=== PATIENT | male | born 1960 | race Caucasian/White ===

== ENCOUNTER 2017-12-09 07:12 | Inpatient (IN) | payer BC ==
--- NOTE | 2017-11-27 20:46 | HP ---
HISTORY AND PHYSICAL: DATE OF ADMISSION/SURGERY: 12/09/17 DATE OF HISTORY AND PHYSICAL: 11/26/17 ATTENDING PROVIDER: Dr. Sierra * (DICTATED BY SMITH MEYER) PROCEDURE: Total hip arthroplasty. CHIEF COMPLAINT: Right hip pain. HISTORY OF PRESENT ILLNESS: Tonny is a 56-year-old male who has been followed by Dr. Sierra for over a year with severe right hip arthritis that has responded in the past positively to cortisone injection. He is able to only walk one to two blocks without being stopped per pain. He is using a forearm cane in his left hand. He is having great difficulty with stairs. His gait is interrupted with regional pain in the right hip frequently. He has been using ibuprofen 600 mg b.i.d. as needed, other days he uses two Aleve and he has found that aspirin can work very well for him 600 mg every 4 to 6 hours. He only uses one of these on any given day. He has discussed a right hip arthroplasty with Dr. Sierra on his last appointment on 10/20/17. He follows up today for an H and P for the same. Patient denies any history of anesthesia problems or of DVT or PE. PAST MEDICAL HISTORY: Include osteoarthritis and anxiety. PAST SURGICAL HISTORY: Hernia repair, two left knee surgeries, one being an ACL reconstruction and a cyst removal of his eye. MEDICATIONS: 1. Ativan 0.5 mg p.r.n. 2. Motrin. 3. Aspirin. 4. Osteo Bi-Flex with Joint Shield. 5. E complex vitamins. 6. Aleve as well as oxycodone. ALLERGIES: No known drug allergies. No allergy to tape or adhesive. FAMILY MEDICAL HISTORY: Father with cardiac disease, colon cancer, and skin cancer. Mother with cancer of unknown origin. SOCIAL HISTORY: Patient is a current everyday smoker and plans to stop on 11/27. He drinks alcohol occasionally. He does endorse marijuana. REVIEW OF SYSTEMS: Positive for palpitations, reports occasional PVCs, a current cough due to a cold, his current complaint chronic back pain, anxiety, numbness and tingling in his left small finger. He does endorse that he barely walk up flight of stairs or a city block without shortness of breath though he is limited by pain. He denies any history of anesthesia problems and no history of DVT or PE. PHYSICAL EXAMINATION GENERAL: He is a well-nourished, well-developed 56-year-old man, in no acute distress. He is alert and oriented x3. He has no gross neurologic deficiencies. He ambulates with a forearm cane. He has normal mood and affect. VITAL SIGNS: Height 68 inches, weight 210 pounds, blood pressure 122/82, respirations 18, temperature 97.6. Pain level 5. BMI 31.9. HEENT: Normocephalic, atraumatic. Pupils equally round and reactive to light. Extraocular movements are intact. NECK: Supple. No palpable cervical lymph nodes. Thyroid is smooth and nontender. PULMONARY: Lungs clear to auscultation bilaterally with no wheezes, rales, or rhonchi. CARDIAC: Regular rate and rhythm. No murmurs, rubs, or gallops. No pedal edema. 2+ DP pulses bilaterally. ABDOMEN: Soft, nontender. MUSCULOSKELETAL: Right hip skin is intact with no erythema, no ecchymosis, and no swelling. He has painful flexion to 80 degrees, abduction to 30 degrees. External rotation to 20 degrees. Actively, passively he can go to 30 to 40 degrees. There is no internal rotation of his hips. Straight leg raise is possible on the right side though it is just a couple of inches and very painful. Right hip is nontender anteriorly, laterally, and posteriorly. No masses are appreciated. No swelling of the right leg, ankle, or feet. Right knee extension is 0 degrees, left knee extension is 0 degrees. STUDIES: X-rays done on 10/20/17 show right hip arthritis that is severe and progressed somewhat since previous views. He has some flattening of the femoral head. IMPRESSION: Severe osteoarthritis of the right hip. PLAN: Tonny is scheduled to undergo a right total hip arthroplasty with Dr. Sierra on 12/09/2017. He will return to clinic in 5-6 weeks postop for followup. He will have suture removal by home health. He has a prescription for oxycodone currently for pain control, which may need to be re-sent on the day of surgery. He will use aspirin for DVT prophylaxis as well as movement. SMITH MEYER [id number]/[facility] #: [id number] MTDEdu
[~2017-12-09 07:12] MED LIST: Buffered Lidocaine 0.9% SYRIN* 5 ML/SYR SYRINGE INTRADERM ONE; DiMENhydriNATE IV* 50 MG/ML VIAL IV PUSH PRN; Famotidine IV* 10 MG/ML 2 ML (20 mg) IV ONE; Morphine INJ* 2 MG/ML 1 ML CARPUJECT IV PRN; Naloxone* 0.4 MG/ML 1 ML VIAL IV PRN; PROCHLORPERAZINE INJ 5 MG/ML 2 ML VIAL IV PRN; Scopolamine 1.5 mg* PATCH TRANSDERM PRN; fentaNYL* 50 MCG/ML 2 ML VIAL (100 MCG VIAL) IV PRN; oxyCODONE/Acetamin 5/325 MG* TAB PO PRN
--- OUTSIDE RECORDS SUMMARY | 2017-12-09 07:19 | XMS REPORT ---
:1960 External Reference #:[id number] Author Organization [facility] Address [address] [address] Phone [phone] Care Team Providers Name Role Phone Lex Joiner MD Primary Care Physician Unavailable Payers Type Date Identification Numbers Payment Provider Subscriber Commercial Effective: Policy Number: CHRIS Cristobal Bansal 2014 [id number] PayID: [id number] [address] [address] [place] [address] Medigap Part B Expires: 2014 Policy Number: Arian Khan jordan Tonny Bansal [id number] PayID: [id number] [address] [address] [place] [address] Problems Description No Information Family History Date Family Member(s) Problem(s) Comments Father Colon Cancer father Mother Liver Cancer liver Social History Type Date Description Comments Lives With Adult family home Occupation RN ETOH Use Drinks Alcoholic Beverages Occasionally ETOH Use He 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 Smoking Patient is a former smoker quit in 2000 Smoking He says he is smoking again. Exercise Type/Frequency Does not exercise Allergies, Adverse Reactions, Alerts Date Description Reaction Status Severity Comments 07/20/2014 NKDA active Medications Medication Date Status Form Strength Qnty SIG Indications Ordering Provider Oxycodone HCL Active Tablets 5mg 60tabs 1 tabs by M16.11 Dirk Rigo, 017 mouth M.D. every 8 hours as needed Lorazepam Active Tablets 0.5mg 60tabs 1 by mouth M16.11 Dirk Rigo, 017 each M.D. evening if needed for sleep Motrin Active Unknown 000 Aspirin Active Tablets 325mg take 2 Unknown 000 tabs daily Osteo Bi-Flex Active Tablets Unknown Advanced 000 Double Strength With Joint Shield B Complex Active Capsules 1 by mouth Unknown Vitamins 000 every day Aleve Active Tablets 220mg as needed Unknown 000 Percocet Hx Tablets 5-325mg 60tabs 1 by mouth M16.11 Kiran Sierra 017 - every 8 M.D. hours as 017 needed pain Oxycodone-Joshua Hx Tablets 5-325mg 40tabs 1-2 tab by Kiran Sierra taminophen 014 - mouth q4-6 M.D. hours as 017 needed pain Oxycodone HCL Hx Capsules 5mg 60caps 1-2 tab po Kiran Sierra, 012 - q4-6h prn M.D. pain 014 Ambien Hx Unknown 000 - 017 Medications Administered in Office Medication Date Status Form Strength Qnty SIG Indications Ordering Provider Depomedrol Administered Injection Josh Vo 80MG 012 Lynsey Leo Depomedrol Administered Injection Kiran Sierra, 40MG 009 M.D. Vital Signs Date Vital Result Comment 11/26/2017 Height 68 inches 5'8" Weight 210.00 lb BP Systolic 122 mmHg BP Diastolic 82 mmHg Respiratory Rate 18 /min Body Temperature 97.6 F Pain Level 5 BMI (Body Mass Index) 31.9 kg/m2 10/20/2017 Height 68 inches 5'8" Weight 210.00 lb BP Systolic 124 mmHg BP Diastolic 84 mmHg Respiratory Rate 20 /min Body Temperature 97.1 F Pain Level 8 BMI (Body Mass Index) 31.9 kg/m2 09/02/2017 Heart Rate 80 /min BP Systolic 142 mmHg BP Diastolic 82 mmHg Respiratory Rate 18 /min Body Temperature 97.7 F 04/14/2017 Height 68 inches 5'8" Weight 210.00 lb Heart Rate 119 /min BP Systolic 157 mmHg BP Diastolic 109 mmHg Body Temperature 96.7 F BMI (Body Mass Index) 31.9 kg/m2 07/20/2014 Height 67 inches 5'7" Weight 200.00 lb Heart Rate 112 /min BP Systolic 135 mmHg BP Diastolic 100 mmHg BMI (Body Mass Index) 31.3 kg/m2 Results Description No Information Procedures Date CPT Code Description Status 07/20/2014 77663 Rad Exam; Hip Unilat Completed 07/20/2014 75755 Rad Exam; Pelvis Completed 03/09/201261663 Inject/Drain Joint/Bursa Major Completed 11/22/2009 05068 Rad Exam; Both Knees, Standing Ap Completed 11/22/200922134 Inject/Drain Joint/Bursa Major Completed Encounters Type Date Location Provider CPT E/M Dx Office Visit 10/20/2017 [facility] Sierra M.D. 06272 M16.11 10:15a [facility] Office Visit 09/02/2017 [facility] [place] [address] K42.9 9:00a Pediatric Immunologist K40.90 Office Visit 04/14/2017 9:45a [facility] M.D. 06492 M16.11 [facility] Office Visit 07/20/2014 4:00p [facility] M.D. 95099 715.95 [facility] Office Visit 03/09/2012 2:00p [facility] [place] [address] 715.96 Of [facility]ALynsey Farley 716.96 Office Visit 11/22/2009 3:30p [facility] M.D. 73600 716.96 [facility] 719.46 Plan of Care Future Appointment(s):12/09/2017 7:30 am - MARILYNN Mathis at [facility]12/09/2017 7:30 am - Kiran Sierra M.D. at [facility]11/26/2017 - Kiran Sierra M.D.M16.11 Unilateral primary osteoarthritis, right hipFollow up:Follow up: 3-5 weeks or as needed for recheck
[2017-12-09] MEDS ORDERED: Buffered Lidocaine 0.9% SYRIN* 5 ML/SYR SYRINGE ONE (07:23)
[2017-12-09] MEDS ORDERED: Famotidine IV* 10 MG/ML 2 ML (20 mg) ONE (07:23)
[2017-12-09] MEDS ORDERED: ceFAZolin 2 GM PREMIX (*) 2 GM/50 ML BAG IVPB ONE (07:23)
[2017-12-09] MEDS ORDERED: Morphine PF AMP (0.5MG/ML)* 5 MG/10 ML AMP ONE (08:04)
[2017-12-09] MEDS ORDERED: KETAMINE HCL* 50 MG/ML 10 ML VIAL ONE (08:04)
[2017-12-09] MEDS ORDERED: Midazolam* 1 MG/ML 10 ML VIAL (10 MG) ONE (08:04)
[2017-12-09] MEDS ORDERED: fentaNYL* 50 MCG/ML 2 ML VIAL (100 MCG VIAL) ONE ×2 (08:04→09:24)
[2017-12-09] MEDS ORDERED: DiMENhydriNATE IV* 50 MG/ML VIAL IV PUSH PRN (09:06)
[2017-12-09] MEDS ORDERED: oxyCODONE/Acetamin 5/325 MG* TAB PO PRN (09:06)
[2017-12-09] MEDS ORDERED: Naloxone* 0.4 MG/ML 1 ML VIAL IV PRN (09:06)
[2017-12-09] MEDS ORDERED: diPHENhydraMINE IV* 50 MG/ML 1 ml VIAL (BENADRYL) IV PRN (09:06)
[2017-12-09] MEDS ORDERED: Naloxone* 2 MG in NS 0.9% 250 ML* 250 ML IV PRN (09:06)
[2017-12-09] MEDS ORDERED: Nalbuphine* 20 MG/ML 1 ML VIAL IV PRN (09:06)
[2017-12-09] MEDS ORDERED: PROCHLORPERAZINE INJ 5 MG/ML 2 ML VIAL IV PRN (09:06)
[2017-12-09] MEDS ORDERED: Midazolam* 1 MG/ML 2 ML VIAL (2 MG) ONE (09:24)
[2017-12-09] MEDS ORDERED: Propofol* 10 MG/ML 20 ML BTL IV PUSH ONE (11:02)
[2017-12-09] MEDS ORDERED: Phenylephrine INJ* 10 MG/ML 1 ML VIAL (10 MG) ONE (11:02)
[2017-12-09] MEDS ORDERED: Dexamethasone IV* 4 MG/ML 1 ML (4 MG) ONE (11:02)
[2017-12-09] MEDS ORDERED: Lidocaine 2% PF * 5 ML VIAL ONE (11:02)
[2017-12-09] MEDS ORDERED: Ondansetron INJ* 2 MG/ML VIAL ONE (11:02)
[2017-12-09] MEDS ORDERED: Bupivacaine 0.5% SDV PF* 10-30ML VIAL ONE (11:02)
[2017-12-09] MEDS ORDERED: Cyclobenzaprine TAB* 10 MG PO PRN (11:27)
[2017-12-09] MEDS ORDERED: Ondansetron INJ* 2 MG/ML VIAL IV PRN (11:27)
[2017-12-09] MEDS ORDERED: Magnesium Hydroxide LIQ* 30 ML UDC PO PRN (11:27)
--- NOTE | 2017-12-09 12:32 | RAD ---
HISTORY: Status post right hip arthroplasty COMPARISONS: October 20, 2017 VIEWS: 2, frontal views of the pelvis FINDINGS: BONE DENSITY: Normal. BONES: The patient is status post right hip arthroplasty. On this single frontal projection, there is no appreciable hardware failure or osteolysis. JOINTS: Status post right hip arthroplasty. ALIGNMENT: There is no dislocation. SOFT TISSUES: Unremarkable. OTHER FINDINGS: None. IMPRESSION: STATUS POST RIGHT HIP ARTHROPLASTY
[2017-12-09] MEDS: ceFAZolin 1 GM VIAL(*) 1 GM in NS 0.9% 50 ML* 50 ML IVPB SCH ×2 (15:40→23:57)
[2017-12-09] MEDS: Magnesium Hydroxide LIQ* 30 ML UDC PO SCH (21:26)
[2017-12-09] MEDS: Docusate CAP* 100 MG PO SCH (21:26)
[2017-12-09] MEDS: Ketorolac INJ* 30 MG/ML 1 ML VIAL IV PRN (23:55)
[2017-12-10] MEDS: oxyCODONE TAB* 5 MG TAB PO PRN ×4 (00:11→12:08)
[2017-12-10] MEDS ORDERED: oxyCODONE TAB* 5 MG TAB PO PRN (00:30)
[2017-12-10] MEDS ORDERED: diPHENhydraMINE IV* 50 MG/ML 1 ml VIAL (BENADRYL) IV PRN (00:30)
[2017-12-10] MEDS ORDERED: oxyCODONE/Acetamin 5/325 MG* TAB PO PRN ×2 (00:30)
--- NOTE | 2017-12-10 02:05 | OP ---
DATE OF OPERATION: 12/09/17 - ROOM #342 DATE OF : 58 SURGICAL CARE: Right hip. SURGEON: Kiran Sierra MD ASSISTANTS: 1. SMITH Mathis 2. Cathy Holman, assembler surgical garment. ANESTHESIOLOGIST: Dr. Rosendo Zaragoza. ANESTHESIA: Spinal with Duramorph and IV sedation. PRE-OP DIAGNOSIS: Severe arthritis of the right hip. POST-OP DIAGNOSIS: Severe arthritis of the right hip. OPERATIVE PROCEDURE: Right total hip replacement. COMPONENTS UTILIZED: The [place]es MDM dual mobility type hip was utilized. COMPLICATIONS: There were no complications. DRAINS: There were no drains. BLOOD LOSS: 300 mL. REPLACEMENT: Crystalloid fluids. CONDITION: Stable to recovery room. OPERATIVE INDICATIONS: Severe arthritis of the right hip. It has been no longer responsive to nonoperative care. The patient did have a cortisone injection in 2017 that was somewhat helpful for a few months and then pain and disability returned. DESCRIPTION OF PROCEDURE: The patient was brought to the operating room and placed on the operating room in a supine position following the administration of the anesthetic. He was returned to the supine position from the seated position. A Chacon catheter was inserted. The patient was placed in the left lateral position with a folded blanket under the left greater trochanter to elevate the pelvis somewhat towards the sealing. The pelvis was secured over the ASISs and the sacrum with hip positioner. Blankets were placed between the legs to downside. Leg was checked to see if there was no pressure on the peroneal nerve at the fibular head and neck. Axillary roll was inserted. The groin was sealed off and the right hip was given a preliminary chlorhexidine prep and then the right hip was prepped above the iliac crest to the foot and then draped free and carefully sealed off in the usual fashion for arthroplasty of the hip. After prepping and draping and sealing off, we did our universal protocol time-out confirming Tonny Bansal and a plan for a right total hip replacement. We all agreed and we proceeded. The hip was approached with a curving posterolateral skin incision going from the greater trochanter distally for a 1-1/2 inch and curving proximally and posteriorly for 3-1/2 inches. The skin and subcutaneous tissues were divided down to the fascia torrie. Careful hemostasis was checked and achieved throughout the case utilizing electrocautery. The fascia torrie was opened in line with the skin incision. A Charnley retractor was inserted and then a careful posterior approach to the hip was done. The gluteus medius was retracted anteriorly with a blunt Hohmann retractor exposing the piriformis and conjoined tendon. The piriformis and conjoined tendon were each marked with a # 2 Surgidac suture and this stitch also included the underlying posterior inferior capsular flap and this served as a retractor throughout the case. The patient had a lot of gold clear synovial fluid. There were osteophytes on the femoral neck. After the careful posterior approach of the hip with careful hemostasis, the hip was dislocated without difficulty. The femoral neck was cut less than a fingerbreadth proximal to the lesser trochanter. The head was completely eburnated and had lost its round shape and was flattened on the top where there was no cartilage and then osteophytes around the base of the head. The acetabulum had lot of synovitis. The acetabulum had large osteophyte medially and posteriorly inferiorly and anteriorly inferiorly. These were all removed in the course of the surgical care. On the acetabulum, sharp Hohmann were placed anteriorly and posteriorly, blunt Hohmann superiorly and inferiorly , more synovectomy was completed as we exposed the acetabulum. The labrum was removed posteriorly, superiorly and anteriorly. Once the exposure was complete , then the reaming was done 44 through 51 and at 51, we did a trial reduction with a nice tight fit of 52. Hemispheric acetabular shell Trident type E type 52 mm outer diameter was then impacted into position and 45 degrees of abduction and 20 degrees of anteversion with a nice tight fit. The acetabulum was cleaned several times with pulsed saline prior to insertion and then one screw was placed superiorly. The MDM type liner inner diameter 42 mm for the 52 cup was inserted with nice tight fit. Attention was then turned to the femoral side and on the acetabulum, we removed the large osteophytes anteriorly and posteriorly and across the bottom as indicated. Each one was 3 cm in length, 5.5 cm in height and 1 cm in thickness. The acetabulum was packed with a saline soaked lab sponge and on the femoral side, we used the canal finder and the box osteotome. Broaching was done, size 0, 1, 2, and 2.5 and at 2.5, we had a nice tight fit. I did not think it was safe to go to a 3. A trial reduction was done with the 2.5 broach and the +0 head and neck and this had positive shock test in extension and a positive push pull. The final femoral stem was then inserted. The Accolade TMZF stem 132 degree neck angle with 30 mm neck was inserted into position in 15 to 20 degrees of anteversion with nice tight fit. Another trial reduction was then done with the +4 head and this had good stability and extension, a negative shock test in extension. No tendency towards dislocation with IR, ER in extension and flexion of 90 degrees allowed adduction and internal rotation of 30 to 40 degrees prior to dislocation. The final components were then opened up. The ceramic head outer diameter 28 mm +4 mm neck length was impacted into the denominational poly insert, the 42E with an inner diameter of 28. These were popped together and had a nice smooth motion between the head and the poly. The trunnion was then cleaned on the prosthesis and dried and the poly ceramic head construct was impacted on to the femoral neck with nice tight fit. The hip was reduced without difficulty and closure was started. During closure, we irrigated several times with saline irrigation solution. The piriformis and conjoint tendon were reapproximated to the posterosuperior greater trochanter with 2 drill holes. Careful hemostasis checked and achieved. I did not think the drains were necessary. The fascia torrie was closed with interrupted #1 [id number] Ti-Cron and the fascia of the gluteus mireya closed with 0 Ti- Cron. The deep and superficial subcu closed with 0 and then 2-0 Ti-Cron inverted on the superficial subcu. The skin was closed with oliva. The wound was washed and dried and covered with Betadine soaked release followed by sterile gauze, ABD pads, and then paper tape. The patient was returned to the supine position and into the hospital bed and to the recovery room in stable and satisfactory condition, having tolerated the procedure very well. [id number]/[facility] #: [id number] DOUG
[2017-12-10] MEDS: Ketorolac INJ* 30 MG/ML 1 ML VIAL IV PRN ×2 (06:09→12:09)
[2017-12-10 06:24] LABS: Hematocrit 38 % (42-52); Hemoglobin 12.8 g/dl (14.0-18.0); Mean Platelet Volume 9 um3 (7.4-10.4); Platelet Count 118 10^3/ul (150-450)
[2017-12-10 06:37] LABS: EGFR Non-African American 126.6 (>60)
[2017-12-10] MEDS: Magnesium Hydroxide LIQ* 30 ML UDC PO SCH (08:07)
[2017-12-10] MEDS: ceFAZolin 1 GM VIAL(*) 1 GM in NS 0.9% 50 ML* 50 ML IVPB SCH (08:07)
[2017-12-10] MEDS: Docusate CAP* 100 MG PO SCH (08:09)
[2017-12-10] MEDS ORDERED: Zolpidem TAB* 10 MG PO PRN (08:13)
--- NOTE | 2017-12-10 08:19 | PN ---
Progress Note - Progress Note Date of Service: 12/10/17 Note: 99 F , VSStable. Hct 38% I and O is satisfactory. X-ray right hip after surgery was satisfactory. Awake, alert, NAD and right hip is dry. Able to raise right leg and do heel slide. Right ankle AROMs up and down. Imp: Stable. Plans: Mobilize with therapy.
[2017-12-10] MEDS ORDERED: Vitamin B Complex TAB PO SCH (09:00)
[2017-12-10] MEDS ORDERED: Aspirin TAB* 325 MG PO SCH (09:00)
[2017-12-10 10:49] VITALS: BP 116/80
[2017-12-10] MEDS ORDERED: Morphine INJ* 2 MG/ML 1 ML SYRINGE (TWO MG - NEW SYRINGE VERSION) IV PRN (12:00)
--- NOTE | 2017-12-11 01:00 | DS ---
DISCHARGE SUMMARY: DATE OF ADMISSION: 12/09/17 DATE OF DISCHARGE: 12/10/17 PROVIDER AND SURGEON: Kiran Sierra MD * (DICTATED BY SMITH CAIN) ASSISTANTS: SMITH Mathis and Cathy Holman land survey technician. PRE-OP DIAGNOSIS: Severe arthritis of the right hip. OPERATIVE PROCEDURE: Right total hip replacement. OPERATIVE INDICATIONS: Severe arthritis of the right hip. It has been no longer responsive to nonoperative care. The patient did have a cortisone injection in 2017 that was somewhat helpful for a few months and then pain and disability returned. HOSPITAL COURSE: Tonny Bansal was admitted to [facility] on . He underwent a right total hip arthroplasty by Dr. Kiran Sierra without complications. He recovered briefly in the PACU and then was transferred to the short-stay surgical unit in stable condition. On postop day #1, Vital Signs: Temperature 98.5, pulse 72, respiratory rate 16 , oxygen saturation 100, blood pressure 116/80. The patient was awake, alert and in no acute distress. Right lower extremity incision looks clean, dry and intact. Dressing was changed and redressed. The patient is able to do a right leg raise and do a heel slide. Right ankle dorsi-flexion and plantar flexion is intact. 2+ dorsalis pedis pulse. Sensation is intact distally. The patient worked with physical therapy and did well. He desired for discharge home today. DISCHARGE MEDICATIONS: 1. Aspirin 325 mg p.o. daily. 2. Glucosamine sulfate 100 mg p.o. daily. 3. B complex vitamin 1 p.o. daily. 4. Oxycodone 5 mg tab, the patient may take 1 to 2 tabs p.o. every 4 hours as needed, not to exceed 60 mg per day. 5. Docusate 100 mg p.o. b.i.d. as needed for bowel movement. DISCHARGE PLAN: Weightbearing as tolerated. Continue hip precautions, do not bend greater than 90 degrees, do not squat, do not cross her legs. Wound care, okay to shower after 12/12/17. No bathing, swimming, or submerging wound. Call orthopedic office for increased drainage, redness, increased pain or fever. Go to the ER with shortness of breath or chest pain. Regular diet. Please call the office if no bowel motion within 48 hours. Continue to use stool softener to ease constipation. Physical therapy and occupational therapy exercises as shown. Visiting nurse will remove oliva in 10 to 12 days and do wound checks. Aspirin 325 mg p.o. daily for DVT prophylaxis to prevent blood clots. Pain control, oxycodone 5 mg tabs, he may take 1 to 2 tabs as often as every 4 hours as needed for pain, not to exceed a maximum daily dose of 60 mg. If you are also taking Tylenol for pain, please note that the maximum daily dose of Tylenol is 4000 mg from all sources. Please follow up with Dr. Sierra in 4 to 6 weeks. Call for an appointment if you do not already have one. SMITH CAIN [id number]/[facility] #: [id number] MTDEdu
[2017-12-12] MEDS ORDERED: Scopolamine PATCH Remove* 1 NOTE MISC PATCH OFF ONE (06:32)
== END 2017-12-10 12:45 | disposition home or self-care (01) | DRG 301 ==
LOC: AA 07:12 → SSU 13:20
PROVIDERS: ADMIT Orthopaedic Surgery; ATTEND Orthopaedic Surgery
PROC: 0SR903A Replacement of Right Hip Joint with Ceramic Synthetic Substitute, Uncemented, Open Approach (ICD-10-PCS; principal; 2017-12-09 08:30)
DX: M16.11 Unilateral primary osteoarthritis, right hip (principal); F12.90 Cannabis use, unspecified, uncomplicated; M25.751 Osteophyte, right hip; F41.9 Anxiety disorder, unspecified; F17.200 Nicotine dependence, unspecified, uncomplicated; G89.29 Other chronic pain; M54.9 Dorsalgia, unspecified; Z79.82 Long term (current) use of aspirin; Z82.49 Family history of ischemic heart disease and other diseases of the circulatory system; Z80.0 Family history of malignant neoplasm of digestive organs; Z72.89 Other problems related to lifestyle
CPT/HCPCS: 36415; 72170; 80048; 85014; 85018; 85049; A9270-GY; C1713; C1776; J0690; J1100; J1885; J2250; J2405; J2704; J3010

== ENCOUNTER 2018-06-16 08:13 | Emergency (ER) | payer BC, OTHER ==
[2018-06-16 09:09] LABS: ABS Basophils 0 10^3/ul (0-0.2); ABS Eosinophils 0.1 10^3/ul (0-0.6); ABS Lymphocytes 0.9 10^3/ul (1.0-4.8); ABS Monocytes 0.3 10^3/ul (0-0.8); ABS Neutrophils 4.9 10^3/ul (1.5-7.7); ABS Nucleated RBC 0 10^3/ul; Eosinophil % 0.9 % (0-6); Hematocrit 49 % (42-52); Hemoglobin 16.9 g/dl (14.0-18.0); Lymphocyte % 13.7 % (25-47); Mean Corpuscular HGB Conc 35 g/dl (31-36); Mean Corpuscular Hemoglobin 33 pg (27-31); Mean Corpuscular Volume 94 fL (80-94); Nucleated Red Blood Cells % 0.1; Platelet Count 111 10^3/ul (150-450); Red Cell Distribution Width 14 % (10.5-15); White Blood Count 6.2 10^3/ul (3.5-10.8)
[2018-06-16 09:41] LABS: EGFR Non-African American 103.8 (>60)
[2018-06-16] MEDS ORDERED: Iohexol 300* (CONTRAST) 10 ML SDV IV ONE (10:47)
--- NOTE | 2018-06-16 11:34 | RAD ---
INDICATION: Groin pain, hernia. COMPARISON: There are no prior studies available for comparison. TECHNIQUE: A CT scan of the abdomen and pelvis was performed with intravenous and with oral contrast following intravenous injection of 127 ml of Omnipaque 300 nonionic contrast. Contiguous axial sections were obtained from the lung bases through the symphysis pubis. Images were reconstructed in the coronal and sagittal planes. FINDINGS: There is mild dependent bilateral lower lobe subsegmental atelectasis. No pleural effusion is present. The liver and spleen are normal in size. The liver is decreased in attenuation consistent with fatty infiltration. No significant focal abnormality is seen. No calcified gallstones are noted. The pancreas appears to be within normal limits. The kidneys and adrenal glands are normal in size. No hydronephrosis is seen. There is a 1.9 cm cyst in the midportion of the left kidney. There is a fusiform shaped aneurysm of the midabdominal the aorta beginning just below the level of the renal tony measuring up to 4.7 cm in transverse dimension. No significant enlarged retroperitoneal lymph nodes are seen. The stomach, small and large bowel appear nondistended. The appendix is within normal limits. There is moderate descending and sigmoid diverticulosis without evidence for diverticulitis. In addition, there is a right inguinal hernia containing nondistended sigmoid colon. There is also a periumbilical hernia containing fat. No free intraperitoneal air or fluid is seen. The patient is status post total right hip replacement surgery. There is degenerative disc disease present in the lumbar spine which is most prominent at the L2-L3 level. No significant focal osseous abnormality is noted. IMPRESSION: 1. 4.7 CM FUSIFORM SHAPED ABDOMINAL AORTIC ANEURYSM. 2. RIGHT INGUINAL HERNIA CONTAINING NONDISTENDED SIGMOID COLON. 3. PERIUMBILICAL HERNIA CONTAINING FAT. 4. HEPATIC STEATOSIS.
--- NOTE | 2018-06-16 12:56 | ED ---
Abdominal Pain/Male - HPI Summary HPI Summary: Patient is a 57-year-old male who presents emergency department for abdominal pain. Patient states he has 2 known abdominal hernias and states that the pain to his right groin has been getting worse and more persistent over the last several days. He states he has an appointment with his surgeon next week but could not wait secondary to pain. Patient denies fever, chills, vomiting, diarrhea, constipation. Pain is worse with coughing and movement. Nothing makes symptoms better. Symptoms are moderate in severity. - History of Current Complaint Chief Complaint: EDAbdPain Stated Complaint: POSSIBLE HERNIA Time Seen by Provider: 06/16/18 08:20 Hx Obtained From: Patient Pain Intensity: 6 - Allergies/Home Medications Allergies/Adverse Reactions: Allergies Allergy/AdvReac Type Severity Reaction Status Date / Time No Known Allergies Allergy Verified 12/09/17 07:29 Home Medications: Home Medications Aspirin TAB* [Aspirin 325 MG TAB*] 650 mg PO Q6H PRN 06/16/18 [History Confirmed 06/16/18] Ondansetron TAB* [Zofran 4 MG Tab*] 4 mg PO Q6H PRN 06/16/18 [History Confirmed 06/16/18] Vitamin B Complex CAP* [B Complex CAP*] 1 cap PO DAILY 06/16/18 [History Confirmed 06/16/18] PMH/Surg Hx/FS Hx/Imm Hx Previously Healthy: Yes Endocrine/Hematology History: Reports: Hx Anemia - low platlets Cardiovascular History: Reports: Hx Peripheral Vascular Disease - poor circulation to legs tyler GI History: Reports: Hx Cirrhosis - etoh related Denies: Other GI Disorders Musculoskeletal History: Reports: Hx Arthritis - knees, back, neck, Hx Bursitis - shoulders tyler, Hx Tendonitis - tyler elbows Denies: Other Musculoskeletal History Sensory History: Reports: Hx Contacts or Glasses Denies: Hx Hearing Aid Opthamlomology History: Reports: Hx Contacts or Glasses Neurological History: Denies: Other Neuro Impairments/Disorders Psychiatric History: Reports: Hx Anxiety - at times Denies: Other Psychiatric Issues/Disorders - Surgical History Surgery Procedure, Year, and Place: ventral hernia age 6, [place] knee 1973, and 1977, [facility] Hx Anesthesia Reactions: No Infectious Disease History: No Infectious Disease History: Denies: Traveled Outside the [place] in Last 30 Days - Social History Occupation: Employed Full-time Lives: With Family Alcohol Use: Weekly Alcohol Amount: 2-3x week, pt states he is alcoholic, pint of liquor at a time. Substance Use Type: Reports: Marijuana Substance Use Comment - Amount & Last Used: rare Smoking Status (MU): Light Every Day Tobacco Smoker Type: Cigarettes Amount Used/How Often: 1 pack aday x 20 years, trying to quit Have You Smoked in the Last Year: No Review of Systems Constitutional: Negative Negative: Fever, Chills Cardiovascular: Negative Respiratory: Negative Positive: Abdominal Pain. Negative: Vomiting, Diarrhea, Nausea Genitourinary: Negative Neurological: Negative All Other Systems Reviewed And Are Negative: Yes Physical Exam Triage Information Reviewed: Yes Vital Signs On Initial Exam: Initial Vitals Temp Pulse Resp BP Pulse Ox 98.2 F 80 16 146/84 99 06/16/18 08:16 06/16/18 08:16 06/16/18 08:16 06/16/18 08:16 06/16/18 08:16 Vital Signs Reviewed: Yes Appearance: Positive: Well-Appearing - Pt. lying in bed in NAD. Skin: Positive: Warm, Dry Head/Face: Positive: Normal Head/Face Inspection Eyes: Positive: Normal Neck: Positive: Supple Respiratory/Lung Sounds: Positive: Breath Sounds Present Cardiovascular: Positive: Normal, RRR Abdomen Description: Positive: Other: - Obese. Abd. is soft. Bulging umbilical hernia that is soft and reducible. Tender right inguinal hernia noted protruding into scrotal sack. Neurological: Positive: Normal, CN Intact II-III Psychiatric: Positive: Affect/Mood Appropriate Diagnostics - Vital Signs Vital Signs Temp Pulse Resp BP Pulse Ox 06/16/18 10:50 155/88 06/16/18 10:20 159/96 06/16/18 09:50 148/87 06/16/18 09:20 148/90 06/16/18 08:37 81 99 06/16/18 08:35 76 163/102 98 06/16/18 08:16 98.2 F 80 16 146/84 99 - Laboratory Lab Results: Lab Results 06/16/18 06/16/18 Range/Units 08:57 08:57 WBC 6.2 (3.5-10.8) 10^3/ul RBC 5.20 (4.00-5.40) 10^6/ul Hgb 16.9 (14.0-18.0) g/dl Hct 49 (42-52) % MCV 94 (80-94) fL MCH 33 H (27-31) pg MCHC 35 (31-36) g/dl RDW 14 (10.5-15) % Plt Count 111 L (150-450) 10^3/ul MPV 9.0 (7.4-10.4) um3 Neut % (Auto) 79.6 (38-83) % Lymph % (Auto) 13.7 L (25-47) % [place] % (Auto) 5.4 (0-7) % Eos % (Auto) 0.9 (0-6) % Baso % (Auto) 0.4 (0-2) % Absolute Neuts (auto) 4.9 (1.5-7.7) 10^3/ul Absolute Lymphs (auto) 0.9 L (1.0-4.8) 10^3/ul Absolute Monos (auto) 0.3 (0-0.8) 10^3/ul Absolute Eos (auto) 0.1 (0-0.6) 10^3/ul Absolute Basos (auto) 0 (0-0.2) 10^3/ul Absolute Nucleated RBC 0 10^3/ul Nucleated RBC % 0.1 Sodium 139 (135-145) mmol/L Potassium 3.6 (3.5-5.0) mmol/L Chloride 101 (101-111) mmol/L Carbon Dioxide 26 (22-32) mmol/L Anion Gap 12 H (2-11) mmol/L BUN 10 (6-24) mg/dL Creatinine 0.77 (0.67-1.17) mg/dL Est GFR ( Amer) 125.6 (>60) Est GFR (Non-Af Amer) 103.8 (>60) BUN/Creatinine Ratio 13.0 (8-20) Glucose 133 H (70-100) mg/dL Calcium 9.2 (8.6-10.3) mg/dL Total Bilirubin 1.20 H (0.2-1.0) mg/dL AST 31 (13-39) U/L ALT 21 (7-52) U/L Alkaline Phosphatase 81 (34-104) U/L Total Protein 7.1 (6.4-8.9) g/dL Albumin 4.6 (3.2-5.2) g/dL Globulin 2.5 (2-4) g/dL Albumin/Globulin Ratio 1.8 (1-3) Result Diagrams: 06/16/18 08:57 06/16/18 08:57 Lab Statement: Any lab studies that have been ordered have been reviewed, and results considered in the medical decision making process. Abdominal Pain Fem Course/Dx - Course Course Of Treatment: Pt. presenting for increased pain to inguinal hernia. He is afebrile and nontoxic. CT scan per radiology: IMPRESSION: 1. 4.7 CM FUSIFORM SHAPED ABDOMINAL AORTIC ANEURYSM. 2. RIGHT INGUINAL HERNIA CONTAINING NONDISTENDED SIGMOID COLON. 3. PERIUMBILICAL HERNIA CONTAINING FAT. 4. HEPATIC STEATOSIS. Labs unremarkable. I was unable to reduce hernia. Surgery was consulted, Dr. Young, who presented to the ER and was able to reduce inguinal hernia. Will dc pt. home to [facility] with his surgeon. To avoid heavy lifting. To return to ER if symptoms change or worsen. - Diagnoses Provider Diagnoses: Inguinal hernia Discharge - Sign-Out/Discharge Documenting (check all that apply): Patient Departure - Discharge Plan Condition: Good Disposition: HOME Patient Education Materials: Inguinal Hernia (ED) Referrals: Lex Joiner MD [Primary Care Provider] - Additional Instructions: Follow up with your surgeon next week as scheduled Avoid heavy lifting Return to ER for increased pain or if concerned - Billing Disposition and Condition Condition: GOOD Disposition: Home
[2018-06-16 13:26] VITALS: BP 141/84
--- NOTE | 2018-06-16 19:09 | CONS ---
CC: Lex Joiner MD * CONSULTATION REPORT: DATE OF CONSULT: 06/16/18 REASON FOR CONSULT: Right inguinal hernia. HISTORY OF PRESENT ILLNESS: This is a 57-year-old gentleman with a 5-year history of right inguinal hernia, for which he had previously been seen at [facility] by Dr. Leblanc. The patient had deferred repair, which had been recommended at that time. He completed a hip arthroplasty on the right side in November of this year. Over the past 10 days, the patient has noted some increasing discomfort in the right groin and has found the hernia to be only partially reducible. The hernia is extending into the scrotum. He has been experiencing no nausea or vomiting. He denies constipation or inability to pass flatus. The patient reports he has no fevers or chills. The patient also notes he has an umbilical hernia. He had scheduled a followup appointment with Dr. Leblanc in the office for next week to address both issues. PAST MEDICAL HISTORY: Significant for peripheral vascular disease, alcohol- related cirrhosis, arthritis, anxiety. PAST SURGICAL HISTORY: Knee arthroscopies in 1973 and 1977 on the left, right total hip arthroplasty in November 2017. MEDICATIONS: Aspirin. ALLERGIES: None. SOCIAL HISTORY: He drinks a pint of liquor 2 to 3 times a week. He is a daily smoker and he is employed. PHYSICAL EXAM: He is in no acute distress, lying in the emergency room stretcher. His temperature was 98.2, pulse was 80, respirations 16, blood pressure is 159/96, and his O2 sat was 99% on room air. The abdomen was obese. He has a reducible umbilical hernia and inguinoscrotal right inguinal hernia that was also reducible. No hernia palpated on the left. DIAGNOSTIC STUDIES/LAB DATA: His CBC showed WBCs of 6.2, hemoglobin of 16.9, hematocrit 49, platelets 111. Chemistry is notable for elevated glucose of 133 , elevated total bili of 1.2. His transaminases and albumin were normal. A CT scan of the abdomen and pelvis done with oral and IV contrast had been completed in the emergency room and was notable for 4.7 cm fusiform abdominal aortic aneurysm, right inguinal hernia with sigmoid colon, periumbilical hernia containing fat, and hepatic steatosis. IMPRESSION: A 57-year-old gentleman with reducible inguinoscrotal right inguinal hernia and umbilical hernias. PLAN/RECOMMENDATIONS: The patient has already scheduled outpatient appointments with Dr. Leblanc at [facility]. There is no need for urgent or emergent repair at this time. He will keep the followup appointments as planned and was encouraged to call us should his symptoms change in the meantime. [id number]/CPS #: [id number] DOUG
== END 2018-06-16 13:27 | disposition home or self-care (01) ==
LOC: ED 08:13
DX: K40.90 Unilateral inguinal hernia, without obstruction or gangrene, not specified as recurrent (principal); R10.9 Unspecified abdominal pain; F17.210 Nicotine dependence, cigarettes, uncomplicated
CPT/HCPCS: 36415; 74177; 80053; 85025; 99283; Q9967

== ENCOUNTER 2020-12-08 18:50 | Observation (INO) ==
[2020-12-08] MEDS: Ondansetron 4 mg VIAL 2 MG/ML 2 ml VIAL IV PRN (19:50)
[2020-12-08 19:51] LABS: ABS Lymphocytes 0.6 10^3/ul (1.0-4.8); ABS Monocytes 0.4 10^3/ul (0-0.8); ABS Neutrophils 6.8 10^3/ul (1.5-7.7); Eosinophil % 0.2 %; Hematocrit 47 % (42-52); Lymphocyte % 7.6 %; Mean Corpuscular HGB Conc 34 g/dL (31-36); Mean Corpuscular Hemoglobin 32 pg (27-31); Mean Corpuscular Volume 94 fL (80-94); Mean Platelet Volume 8.7 fL (7.4-10.4); Platelet Count 141 10^3/uL (150-450); Red Blood Count 4.94 10^6 /uL (4.18-5.48); Red Cell Distribution Width 14 % (10-15); White Blood Count 7.8 10^3/uL (3.5-10.8)
[2020-12-08 20:00] LABS: INR 1.11 (0.82-1.09)
[2020-12-08 20:07] LABS: Albumin 4.3 g/dL (3.2-5.2); Albumin/Globulin Ratio 1.6 (1-3); Calcium 9.3 mg/dL (8.6-10.3); EGFR African American 119.3 (>60); EGFR Non-African American 98.6 (>60); Globulin 2.7 g/dL (2-4); Potassium 3.2 mmol/L (3.5-5.0); Total Bilirubin 0.8 mg/dL (0.2-1.0)
[2020-12-08] MEDS ORDERED: Morphine 10 MG/ML VIAL (1 ml) IV ONE (20:10)
[2020-12-08] MEDS ORDERED: Iohexol 300 (CONTRAST) 10 ML SDV IV ONE (20:40)
[2020-12-08] MEDS ORDERED: Lactated Ringers 1000 ml BAG 1,000 ML IV ONE (20:55)
[2020-12-08] MEDS ORDERED: NS 0.9% 1000 ml BAG 2,000 ML IV ONE (20:55)
[2020-12-08] MEDS ORDERED: Morphine 10 MG/ML VIAL (1 ml) IM PRN (20:56)
[2020-12-08] MEDS ORDERED: Piperacillin/Tazobac ADVAN 3.375 GM in NS 0.9% 100 ml BAG 100 ML IV ONE (20:58)
[2020-12-08] MEDS ORDERED: HYDROmorphone 1 MG/1 ML SYRINGE IV SLOW PU PRN ×2 (21:33→23:00)
[2020-12-08] MEDS ORDERED: HYDROmorphone 1 MG/1 ML SYRINGE ONE (21:37)
[2020-12-08] MEDS: Lactated Ringers 1000 ml BAG 1,000 ML IV SCH (22:11)
[2020-12-08] MEDS ORDERED: Lactated Ringers 1000 ml BAG 1,000 ML IVPB SCH (23:00)
[2020-12-08] MEDS ORDERED: HYDROmorphone 1 MG/1 ML SYRINGE IV SLOW PU ONE (23:17)
[2020-12-08] MEDS ORDERED: NS 0.9% 1000 ml BAG 1,000 ML IV SCH (23:30)
[2020-12-09] MEDS: Lactated Ringers 1000 ml BAG 1,000 ML IV SCH (00:08)
[2020-12-09] MEDS: Ondansetron 4 mg VIAL 2 MG/ML 2 ml VIAL IV PRN (01:15)
[2020-12-09] MEDS: HYDROmorphone 1 MG/1 ML SYRINGE IV SLOW PU PRN ×5 (01:15→13:16)
[2020-12-09] MEDS: KCL 10 MEQ/50 ML IVPREMIX 10 MEQ/50 ML BAG IV SCH ×4 (01:15→04:32)
[2020-12-09] MEDS: Piperacillin/Tazobac ADVAN 3.375 GM in NS 0.9% 100 ml BAG 100 ML IV SCH ×2 (03:31→14:26)
[2020-12-09 05:34] LABS: ABS Lymphocytes 0.8 10^3/ul (1.0-4.8); ABS Monocytes 0.5 10^3/ul (0-0.8); ABS Neutrophils 5.3 10^3/ul (1.5-7.7); Eosinophil % 0.4 %; Hematocrit 44 % (42-52); Hemoglobin 15.3 g/dL (14.0-18.0); Lymphocyte % 12.5 %; Mean Corpuscular HGB Conc 35 g/dL (31-36); Mean Corpuscular Hemoglobin 33 pg (27-31); Mean Corpuscular Volume 94 fL (80-94); Mean Platelet Volume 8.9 fL (7.4-10.4); Nucleated Red Blood Cells % 0.1; Platelet Count 143 10^3/uL (150-450); Red Blood Count 4.65 10^6 /uL (4.18-5.48); Red Cell Distribution Width 14 % (10-15); White Blood Count 6.7 10^3/uL (3.5-10.8)
[2020-12-09 05:51] LABS: Albumin 4.1 g/dL (3.2-5.2); BUN/Creatinine Ratio 12.3 (8-20); Calcium 8.9 mg/dL (8.6-10.3); EGFR African American 132.6 (>60); EGFR Non-African American 109.6 (>60); Globulin 2.1 g/dL (2-4); Potassium 3.7 mmol/L (3.5-5.0); Total Bilirubin 0.9 mg/dL (0.2-1.0); Total Protein 6.2 g/dL (6.4-8.9)
[2020-12-09] MEDS ORDERED: Midazolam 2 mg/2 ml VIAL 1 mg/ml 2 ml VIAL (2 mg) ONE ×2 (08:36→12:03)
[2020-12-09] MEDS ORDERED: fentaNYL 100 mcg/2 ml 50 MCG/ML VIAL ONE (08:36)
[2020-12-09] MEDS ORDERED: Lidocaine 2% PF 5 ML VIAL ONE (08:37)
[2020-12-09] MEDS ORDERED: Propofol 10 MG/ML 20 ML BTL ONE ×3 (08:37→11:33)
[2020-12-09] MEDS ORDERED: Rocuronium 50 mg VIAL 10 mg/ml 5 ml VIAL (50 mg) ONE (08:37)
[2020-12-09] MEDS ORDERED: Ondansetron 4 mg VIAL 2 MG/ML 2 ml VIAL ONE ×2 (08:43→11:01)
[2020-12-09] MEDS ORDERED: FOLIC ACID IV SCH (10:00)
[2020-12-09] MEDS ORDERED: THIAMINE IV SCH (10:00)
[2020-12-09] MEDS ORDERED: [UNRECOGNIZED DRUG - OTHER] IV SCH (10:00)
[2020-12-09] MEDS ORDERED: MULTIPLE VITAMIN IV SCH (10:00)
[2020-12-09] MEDS ORDERED: Lidocaine 1% VIAL 10 MG/ML VIAL ONE (10:17)
[2020-12-09] MEDS ORDERED: Bupivacaine 0.5% SDV PF 30ML VIAL ONE (10:17)
[2020-12-09] MEDS ORDERED: Dexamethasone IV 4 MG/ML VIAL 1 ml VIAL ONE (11:01)
[2020-12-09] MEDS ORDERED: HYDROmorphone 1 MG/1 ML SYRINGE ONE ×2 (11:09→13:15)
[2020-12-09] MEDS ORDERED: fentaNYL 100 mcg/2 ml 50 MCG/ML VIAL IV PRN (12:09)
[2020-12-09] MEDS ORDERED: Naloxone 0.4 mg VIAL 0.4 mg/ml 1 ml VIAL IV PRN (12:09)
[2020-12-09] MEDS ORDERED: DiMENhydriNATE IV 50 mg/ml 1 ml VIAL IV PUSH PRN (12:09)
[2020-12-09] MEDS ORDERED: hydrALAZINE 20 mg/ml 1 ML Vial IV ONE (12:51)
[2020-12-09] MEDS ORDERED: hydrALAZINE 20 mg/ml 1 ML Vial IV IV SLOW PU PRN (13:29)
[2020-12-09] MEDS ORDERED: LORazepam PO 0-6 for WAM protocol PO SCH (15:00)
[2020-12-09 23:48] VITALS: BP 151/86
== END 2020-12-09 16:56 | disposition home or self-care (01) ==
LOC: ED 18:50 → SSU 18:50
PROVIDERS: ADMIT Surgery Surgical Critical Care; ATTEND Surgery Surgical Critical Care

== ENCOUNTER 2022-04-23 06:10 | Inpatient (IN) ==
[~2022-04-23 06:10] MED LIST changes: -Buffered Lidocaine 0.9% SYRIN* 5 ML/SYR SYRINGE INTRADERM ONE; +Buffered Lidocaine 1% SYRIN 1 ml INTRADERM ONE; -DiMENhydriNATE IV* 50 MG/ML VIAL IV PUSH PRN; -Famotidine IV* 10 MG/ML 2 ML (20 mg) IV ONE; +Lactated Ringers 1000 ml BAG 1,000 ML IV SCH; -Morphine INJ* 2 MG/ML 1 ML CARPUJECT IV PRN; +Naloxone 0.4 mg VIAL 0.4 mg/ml 1 ml VIAL IV PRN; -Naloxone* 0.4 MG/ML 1 ML VIAL IV PRN; +Ondansetron 4 mg VIAL 2 MG/ML 2 ml VIAL IV PRN; -PROCHLORPERAZINE INJ 5 MG/ML 2 ML VIAL IV PRN; -Scopolamine 1.5 mg* PATCH TRANSDERM PRN; +fentaNYL 100 mcg/2 ml 50 MCG/ML VIAL IV PRN; -fentaNYL* 50 MCG/ML 2 ML VIAL (100 MCG VIAL) IV PRN; -oxyCODONE/Acetamin 5/325 MG* TAB PO PRN
[2022-04-23] MEDS ORDERED: ceFAZolin 2 GM in NS PREMIX 2 GM/100 ML BAG IVPB ONE (06:54)
[2022-04-23] MEDS ORDERED: Midazolam 2 mg/2 ml VIAL 1 mg/ml 2 ml VIAL (2 mg) ONE (07:37)
[2022-04-23] MEDS ORDERED: Dexamethasone IV 4 MG/ML VIAL 1 ml VIAL ONE ×2 (07:48→08:29)
[2022-04-23] MEDS ORDERED: Bupivacaine 0.5% SDV PF 30ML VIAL ONE (07:52)
[2022-04-23] MEDS ORDERED: Lidocaine 1% MPF 5 ML VIAL ONE (08:00)
[2022-04-23] MEDS ORDERED: ROPIVACAINE 5 MG/ML 30 ML BTL (0.5%) ONE (08:00)
[2022-04-23] MEDS ORDERED: Ondansetron 4 mg VIAL 2 MG/ML 2 ml VIAL ONE (08:29)
[2022-04-23] MEDS ORDERED: fentaNYL 250 mcg/5 ml 50 MCG/ML 5 ml VIAL (250 MCG) ONE (08:29)
[2022-04-23] MEDS ORDERED: Propofol 10 MG/ML 20 ML BTL ONE (08:29)
[2022-04-23] MEDS ORDERED: HYDROmorphone 0.5 MG/0.5 ML SYRINGE ONE ×4 (09:04→11:34)
[2022-04-23] MEDS ORDERED: fentaNYL 100 mcg/2 ml 50 MCG/ML VIAL ONE ×2 (10:08→12:50)
[2022-04-23] MEDS ORDERED: Acetaminophen IV 1 GM/100ML 100 ML IV ONE (10:16)
[2022-04-23] MEDS ORDERED: Ondansetron 4 mg VIAL 2 MG/ML 2 ml VIAL IV PRN (10:26)
[2022-04-23] MEDS ORDERED: Ondansetron ODT 4 mg TAB 4 MG TAB PO PRN (10:26)
[2022-04-23] MEDS ORDERED: Morphine 2 MG/ML SYRINGE IV PRN (10:26)
[2022-04-23] MEDS ORDERED: Lactulose 30 ml UDC PO PRN (10:26)
[2022-04-23] MEDS ORDERED: Magnesium Hydroxide LIQ 30 ML UDC PO PRN (10:26)
[2022-04-23] MEDS ORDERED: Lactated Ringers 1000 ml BAG 1,000 ML IV SCH (11:00)
[2022-04-23] MEDS ORDERED: Sevoflurane BOTTLE ONE (11:11)
[2022-04-23] MEDS ORDERED: Labetalol IV 5 MG/ML 20 ml VIAL ONE (12:01)
[2022-04-23] MEDS: ceFAZolin 1 GM ADVAN 1 GM in NS 0.9% 50 ML 50 ML IVPB SCH (16:27)
[2022-04-23] MEDS: Magnesium Hydroxide LIQ 30 ML UDC PO SCH (20:25)
[2022-04-24] MEDS: ceFAZolin 1 GM ADVAN 1 GM in NS 0.9% 50 ML 50 ML IVPB SCH ×2 (01:11→09:40)
[2022-04-24 06:35] LABS: Hematocrit 39 % (42-52); Hemoglobin 13.2 g/dL (14.0-18.0); Mean Platelet Volume 8.8 fL (7.4-10.4); Platelet Count 112 10^3/uL (150-450)
[2022-04-24 06:59] LABS: Calcium 8.1 mg/dL (8.6-10.3); Potassium 4.4 mmol/L (3.5-5.0); eGFR CKD-EPI 95.3 (>60)
[2022-04-24] MEDS ORDERED: Vitamin THERAPEUTIC TAB PO SCH (09:00)
[2022-04-24] MEDS: Magnesium Hydroxide LIQ 30 ML UDC PO SCH (09:40)
[2022-04-24 11:49] VITALS: BP 150/87
== END 2022-04-24 13:20 | disposition home health service (06) | DRG 302 ==
LOC: AA 06:10 → SSU 14:11
PROVIDERS: ADMIT Orthopaedic Surgery Adult Reconstructive Orthopaedic Surgery; ATTEND Orthopaedic Surgery Adult Reconstructive Orthopaedic Surgery